=== PATIENT | female | born 1955 | race Caucasian/White ===

== ENCOUNTER 2018-12-28 11:59 | Observation (INO) ==
[2018-12-27 11:27] LABS: BASO# 0.04 X1000 (0.0-0.2); BASO% 0.4 % (0.0-0.8); EOS# 0.36 X1000 (0.0-0.7); EOS% 3.4 % (0.0-10.0); HEMATOCRIT 41.2 % (37.0-47.0); HEMOGLOBIN 13.4 g/dL (12.0-16.0); IMM GRAN# 0.08 X1000 (0.0-0.04); IMM GRAN% 0.8 % (0.0-0.5); LYMPH# 1.32 X1000 (1.2-3.4); LYMPH% 12.5 % (20.5-51.1); MCH 29.9 PG (27-31); MCHC 32.5 g/dL (33-37); MONO# 0.57 X1000 (0.11-0.59); MONO% 5.4 % (1.7-9.3); MPV 9.5 FL (7.4-10.4); NEUT# 8.22 X1000 (1.4-6.5); NEUT% 77.5 % (42.2-75.2); PLT 297 X1000 (130-400); RBC 4.48 XMIL (4.2-5.4); RDW 13.1 % (11.5-14.5); WBC 10.59 X1000 (4.8-10.8)
[2018-12-27 11:36] LABS: INR 1.86; PROTIME 21.8 Seconds (11.0-16.0)
[2018-12-27 11:59] LABS: AGAP 13; ALB/GLOB RATIO 1.1; ALBUMIN 3.4 g/dL (3.5-5.0); ALKALINE PHOSPHATASE 85 U/L (32-104); BUN 13 mg/dL (8-22); CALCIUM 8.8 mg/dL (8.8-10.2); CHLORIDE 101 mmol/L (98-107); COSMO 284; CREATININE 0.5 mg/dL (0.5-0.9); ESTIMATED GFR > 60; GLUCOSE 173 mg/dL (70-104); GOT 16 U/L (10-30); GPT 11 U/L (10-36); MAGNESIUM 1.7 mg/dL (1.5-2.7); SODIUM 140 mmol/L (136-145); TCO2 26 mmol/L (25-35); TOTAL BILIRUBIN 0.89 mg/dL (0.20-1.00); TOTAL PROTEIN 6.6 g/dL (6.3-8.3)
[2018-12-27] MEDS: NS 1,000 ML IV SCH ×2 (13:09→13:56)
--- NOTE | 2018-12-27 19:02 | Diag Imaging Result Doc PS360 ---
EXAM: US PELVIC NON-OB COMPLETE - 12/27/2018 HISTORY: Post menopausal bleeding TECHNIQUE: Ultrasound pelvis. Exam performed using transabdominal probe. According to the technologist, the patient refused imaging utilizing the endovaginal probe. COMPARISON: None. FINDINGS: There is limitation of detail due to the patient's body habitus and limited distention of the urinary bladder. The uterus measures 6 x 5.8 x 3.3 cm in size. The dual layer endometrial thickness measures 3 mm. There is no uterine lesion identified. Neither ovary is visualized. There is no adnexal region mass identified. There is no free fluid identified. IMPRESSION: Limited exam. No visible abnormality. However, neither ovary is visualized. Electronically signed by Andrew Morales 12/27/2018 6:59 PM
[2018-12-27] MEDS: TYLENOL PO PRN (21:09)
[2018-12-27] MEDS: HUMALOG SUBQ SCH (23:38)
--- NOTE | 2018-12-28 04:42 | HISTORY AND PHYSICAL ---
CHIEF COMPLAINT: [*]. HISTORY OF PRESENT ILLNESS: This is a morbidly obese 63-year-old female with a history of congestive heart failure, atrial fibrillation on chronic anticoagulation, history of DVT, pulmonary embolus, diabetes mellitus type 2, with chronic venous ulcer to bilateral legs, with reported Pseudomonas. She presents to the hospital as a direct admit from [facility] for reported urethral or vaginal bleeding. The patient has a chronic indwelling Caldera due to her being bedridden. She states that yesterday afternoon she had a large bowel movement, had to strain quite a bit, had noticed a few flecks of blood in her Caldera, this cleared shortly after. She states that about 11 p.m last night or so she "felt a gush between her legs. Her checked and she noted blood, and they stated that they found the Caldera in the bed with her with the balloon inflated. She then presented to [facility]. A Caldera catheter was placed, and she was transferred to [facility] for Urology. PAST MEDICAL HISTORY: Diabetes mellitus type 2, atrial fibrillation on chronic anticoagulation, congestive heart failure, history of pulmonary embolus and deep vein thrombosis, arthritis, sleep apnea, recent sepsis with a prolonged hospitalization due to Pseudomonas ulcers bilateral legs, it started in June of 2018. PAST SURGICAL HISTORY: Left hip surgery, gallbladder, hernia surgery, skin graft to left lower extremity. ALLERGIES: No known drug allergies. HOME MEDICATIONS: A list will be obtained by the nursing staff and once verified will be restarted as appropriate. REVIEW OF SYSTEMS: Is discussed with the patient with pertinent positives stated in the HPI. She denied any syncope or dizziness, any chest pain or palpitations, shortness of breath, cough, fever, chills, night sweats, any nausea, vomiting, diarrhea, constipation, black or bloody vomitus or stools, hematuria. PHYSICAL EXAMINATION: GENERAL: This is a 63-year-old female who is lying in the bed in mild distress. VITAL SIGNS: Blood pressure is 125/83, with a heart rate of 97, respirations are 18, temperature 97.4 degrees, with room air saturations 97% to 100%. EYES: Pupils are equal, round and reactive to light. EOMs are intact. Sclerae are anicteric. HEENT: Head is normocephalic, atraumatic. Mucous membranes are moist. NECK: Supple with trachea midline. CARDIOVASCULAR: Regular rate and rhythm. S1 and S2 appreciated. EXTREMITIES: She has right lower extremity edema. Calves are nontender with peripheral pulses palpable x4 extremities. PULMONARY: Breath sounds are clear with no increased work of breathing noted. GASTROINTESTINAL: Abdomen is large, soft, nontender, nondistended with bowel sounds in all 4 quadrants. SKIN: Warm and dry. She does have scarring to her left leg from prior ulcer. She has discoloration of both feet. To the plantar surface they are bluish. She has a dressing intact to her right lower extremity. She is noted to have excoriation to bilateral groin folds up to her pannus and under both breasts. ASSESSMENT AND PLAN: 1. Presumed vaginal bleeding. 2. Questionable urethral bleeding. 3. Diabetes mellitus type 2. 4. History of congestive heart failure. 5. History of atrial fibrillation on chronic anticoagulation. 6. History of deep venous thrombosis and pulmonary embolus. 7. Arthritis. 8. Sleep apnea. 9. Recent Pseudomonas to ulcer right lower extremity. PLAN: The patient has been admitted. We will place her on telemetry. We will hold her anticoagulation at present while we are evaluating her bleeding. We will identify her home medications and continue. We will check a BMP and CBC in the morning. Pattern blood glucose with sliding scale insulin. We will consult wound therapy for evaluation. did examine the patient and on checking her Caldera her Caldera catheter was placed vaginally. When balloon was deflated the catheter did fall out of the vaginal area, and she immediately voided a large amount onto the bed. Prior to this she had been having some suprapubic pain, this did relieve after voiding. It was attempted to place a Caldera, although due to her body habitus and her arthritis we are unable to do this even the assistance of 4 extra people. We would attempt to turn her over on her abdomen and placed a Caldera. During this time she was noted to have vaginal bleeding, passing large clots, and therefore we discontinued attempting to pass the Caldera. We will consult Dr. Goncalves for BRAND PROTECTION MANAGER. Of note, the patient has not had a hysterectomy, and her last Pap smear was greater than 20 years ago. Further treatments pending hospital course. Plan was discussed with Dr. Ricketts. Dictated by REYNA Nina for Chance Martino MD cc: REYNA Nina MD MTDD
[2018-12-28] MEDS: ULTRAM PO PRN ×2 (05:29→22:23)
[2018-12-28] MEDS: PRILOSEC PO SCH ×2 (05:30→07:10)
--- NOTE | 2018-12-28 05:48 | CONSULTATION ---
DATE OF CONSULTATION: 12/27/2018 HISTORY OF PRESENT ILLNESS: The patient is a 63-year-old white female G0 who presents after referral after transfer from [facility] to [facility]. The patient is a 63- year-old bedridden female who had a catheter incident or removal, and had some bleeding afterwards. The concern was the patient might need a urology consult, and then was therefore transferred here. Apparently, after her initial evaluation, it was found that the patient had vaginal bleeding. Therefore, a GENERATOR WORKER consultation. Patient reports that since menopause, she has not had any vaginal bleeding, and this has been since age 44. She is unsure of when her last Pap smear was, but her last mammogram was last year. PAST MEDICAL HISTORY: Significant for obesity, arthritis, atrial fibrillation, diabetes mellitus, obstructive sleep apnea, and incontinence. PAST SURGICAL HISTORY: Significant for left hip surgery x4, cholecystectomy, hernia repair after the cholecystectomy, and she has had surgery for venous ulcers. She had a stent placed in one of the vessels leading to her left leg. PAST OB HISTORY: G0. GENERATOR WORKER HISTORY: Menarche at age 13 and menopause at age 44. FAMILY HISTORY: Significant for high blood pressure as well as colon cancer. MEDICATIONS: Tramadol, gabapentin, metformin, Celexa, Zocor. Xarelto, metoprolol, and Tessalon Perles. ALLERGIES: No known drug allergies. PHYSICAL EXAMINATION: Vital Signs: Height 4 foot 11 inches, weight 319 pounds, temperature 98 degrees, blood pressure 141/79, pulse of 87, and respirations 18. HEENT: Pupils equal, round, and reactive to light and accommodation. Extraocular movements intact. Oropharynx clear. Neck: Supple. No thyromegaly. Lungs: Clear to auscultation. Heart: Regular rate and rhythm. Abdomen: Obese. Pelvic: Exam is difficult due to the patient's body habitus, but trying to visualize the vaginal mucosa due to patient's size was difficult even with help. We did not see any abnormal findings, but certainly not sure that there could not have been some incident involving catheterization or ulcers that have occurred because of her stationary status. On bimanual examination, unable to appreciate any fungating masses, and of course is difficult to assess the uterus due to the patient's body habitus. The lower extremities were very difficult to maneuver. Patient along with her arthritis and several hip surgeries, and large size, it is a difficult patient to manage from a GENERATOR WORKER standpoint. ASSESSMENT AND PLAN: Vaginal bleeding of unknown origin, possibly from her Xarelto or possibly from ulceration of skin from being bedridden and with catheter. I am unsure of the etiology. We will evaluate the uterus with an ultrasound to see if there is any endometrial thickening. At the present time, I would recommend to decrease the Xarelto and see if this was not a factor in her bleeding episode. Her hemoglobin is of a high enough status that she does not appear to be in any life-threatening situation. We will recheck a CBC and reassess once the ultrasound has been performed. cc: Abelino Goncalves III, MD
[2018-12-28 06:07] LABS: BASO# 0.04 X1000 (0.0-0.2); BASO% 0.4 % (0.0-0.8); EOS# 0.47 X1000 (0.0-0.7); EOS% 4.9 % (0.0-10.0); HEMATOCRIT 39.1 % (37.0-47.0); HEMOGLOBIN 12.7 g/dL (12.0-16.0); IMM GRAN# 0.09 X1000 (0.0-0.04); IMM GRAN% 0.9 % (0.0-0.5); LYMPH# 1.85 X1000 (1.2-3.4); LYMPH% 19.5 % (20.5-51.1); MCH 29.7 PG (27-31); MCHC 32.5 g/dL (33-37); MCV 91.4 FL (81-99); MONO# 0.52 X1000 (0.11-0.59); MONO% 5.5 % (1.7-9.3); MPV 9.4 FL (7.4-10.4); NEUT# 6.54 X1000 (1.4-6.5); NEUT% 68.8 % (42.2-75.2); PLT 308 X1000 (130-400); RBC 4.28 XMIL (4.2-5.4); RDW 13.1 % (11.5-14.5); WBC 9.51 X1000 (4.8-10.8)
[2018-12-28 06:38] LABS: AGAP 13; BUN 8 mg/dL (8-22); CALCIUM 9.1 mg/dL (8.8-10.2); CHLORIDE 101 mmol/L (98-107); COSMO 277; CREATININE 0.5 mg/dL (0.5-0.9); ESTIMATED GFR > 60; GLUCOSE 154 mg/dL (70-104); POTASSIUM 3.8 mmol/L (3.5-5.1); SODIUM 138 mmol/L (136-145); TCO2 24 mmol/L (25-35)
[2018-12-28] MEDS: HUMALOG SUBQ SCH ×4 (06:58→22:03)
[2018-12-28] MEDS: NS 1,000 ML IV SCH ×2 (06:58→11:57)
[~2018-12-28 11:59] MED LIST: CELEXA PO ONE; DILAUDID IV ONE; NS 500 ML IV ONE; ZOFRAN IV PRN
--- NOTE | 2018-12-28 18:12 | PROGRESS NOTE ---
DATE: 12/28/2018 SUBJECTIVE: The patient reports no more episodes of bleeding. This afternoon nurse tech notified that there was a big clot that this patient had. Patient is denying any dizziness or lightheadedness. OBJECTIVE: Vital Signs: Temperature 98 degrees, heart rate 80, respiratory rate 18, blood pressure 145/78, 100% on nasal cannula. General examination: This is a morbidly obese, 63-year- old female lying in bed in no acute distress. Cardiovascular Exam: S1, S2 heard. No murmurs, gallops, or rubs. Regular rate and rhythm. Respiratory Exam: Clear bilaterally to auscultation. No work of breathing or using accessory muscles. Abdomen: Soft, nontender to palpation. Bowel sounds present. No organomegaly. Extremities: No clubbing, cyanosis, or edema. Peripheral pulses present in both legs. Neurological exam: Patient is alert and oriented x3. Moves all 4 extremities. LABORATORY DATA: Hemoglobin yesterday 13.4, today 12.7. Normal BMP. ASSESSMENT AND PLAN: 1. Presumed vaginal bleeding. Patient has been evaluated by OB-HANDMADE TILE ARTIST. Both physical examination an pelvic ultrasound did not show any signs of bleeding. We are not sure if she had some ureteral bleeding as well. At this point, her hemoglobin is stable. I think at this time considering that we may need to rule out any hematuria and also for placement of Caldera catheter that this patient will be challenging for our nursing staff. I prefer to go ahead and consult urology. 2. Diabetes mellitus type 2. We will continue with sliding scale insulin and Accu-Chek before meals and also at bedtime. 3. Congestive heart failure. Patient is not in an exacerbation. We will continue to monitor. 4. History of atrial fibrillation on chronic anticoagulation. We of course have held [email or web address] at this point. 5. History of deep venous thrombosis and pulmonary embolism. Aware. Not receiving any blood thinners at this point. DISPOSITION: After evaluation by Urology, if everything is okay, I am planning to keep this patient 1 more day but check hemoglobin. If that is okay tomorrow, I think it would be reasonable to discharge her. cc: MD RYLIE Hilliard
--- NOTE | 2018-12-28 22:46 | CONSULTATION ---
DATE OF CONSULTATION: 12/28/2018 ATTENDING AND REFERRING PHYSICIAN: Hospitalist. HISTORY OF PRESENT ILLNESS: This 63-year-old female was admitted with probable vaginal bleeding and hematuria. The patient is morbidly obese and bed bound. The patient states she had a severe pelvic fracture at age 11 and had her left hip replaced at age 20. She has had several revisions with that and developed a large ulcer on the left lower extremity in June 2018. She states that she is also having significant arthritic changes of her knees and has been recommended to have bilateral knee replacement surgery. She states that since the surgery on her left lower extremity she has had a Caldera catheter in place because of significant incontinence. She states she cannot stand because of her knees. She states that the other night the Caldera catheter was somehow pulled out with the balloon intact and she has had bleeding off and on since then. She has been evaluated here by RESIDENTIAL REMODELING SUBCONTRACTOR. It is felt that she had a mucosal tear. She is anticoagulated secondary to chronic atrial fibrillation. The patient denies any problems with kidney stones. She has had no previous urologic surgery. She states the catheter is changed by home health monthly. She states she has an occasional urinary tract infection and has her whole life. PAST MEDICAL HISTORY: Diabetes, atrial fibrillation, history of DVTs, arthritis, sleep apnea. CURRENT MEDICATIONS: Documented on the chart. PAST SURGICAL HISTORY: Left hip replacement with several revisions since then, cholecystectomy, hernia surgery and decubitus ulcer care with skin grafting. SOCIAL HISTORY: No tobacco or alcohol use. ALLERGIES: No known drug allergies. REVIEW OF SYSTEMS: She denies any problems with recent chest pains, pulmonary or bowel problems. PHYSICAL EXAMINATION: General: A markedly obese, age apparent, normally developed, white female, oriented in all ways and cooperative. HEENT: Normal for age. Lungs: Clear. Cardiovascular: Regular rate and rhythm. No murmur is appreciated. Abdomen: Very obese, soft, nontender. No hepatosplenomegaly or masses. Normal bowel sounds. : Deferred until surgery. Extremities: Mild right lower extremity edema. Left side has a scar from her previous ulcer and treatment. Neurologic: No focal deficits. LABORATORY EVALUATION: Has a white count of 9.51, hemoglobin of 12.7, hematocrit 39.1, and platelets are 308,000. Serum electrolytes are normal. BUN 8, creatinine 0.5. IMPRESSION: 1. Chronic indwelling Caldera catheter for the last several months to allow care of her left lower extremity wound. 2. Probable Caldera catheter trauma to the bladder and possible urethra and vaginal area. 3. Bleeding will continue until the tears completely heal which will take longer with her being anticoagulated. 4. Morbid obesity. RECOMMEND: Cystoscopic exam with bilateral retrograde ureteral pyelograms to ensure the urinary system is normal. This was discussed with the patient. The planned procedure, benefits versus risks, possible complications, including continued bleeding, infection, not finding an abnormality, finding an abnormality with need for further treatment was discussed. She seems to understand and desires to proceed. This will be done Monday ( 31 December). Thank you for this consultation. cc: Jeet Villeda MD MTDD
[2018-12-29] MEDS: NS 1,000 ML IV SCH ×3 (00:03→13:01)
[2018-12-29] MEDS: HUMALOG SUBQ SCH ×4 (06:44→21:13)
[2018-12-29] MEDS: PRILOSEC PO SCH (06:48)
[2018-12-29 07:51] LABS: BASO# 0.05 X1000 (0.0-0.2); BASO% 0.5 % (0.0-0.8); EOS# 0.46 X1000 (0.0-0.7); EOS% 4.6 % (0.0-10.0); HEMATOCRIT 32.3 % (37.0-47.0); HEMOGLOBIN 10.3 g/dL (12.0-16.0); IMM GRAN# 0.06 X1000 (0.0-0.04); IMM GRAN% 0.6 % (0.0-0.5); LYMPH# 1.97 X1000 (1.2-3.4); LYMPH% 19.7 % (20.5-51.1); MCH 29.6 PG (27-31); MCHC 31.9 g/dL (33-37); MCV 92.8 FL (81-99); MONO# 0.74 X1000 (0.11-0.59); MONO% 7.4 % (1.7-9.3); MPV 10.1 FL (7.4-10.4); NEUT# 6.71 X1000 (1.4-6.5); NEUT% 67.2 % (42.2-75.2); PLT 271 X1000 (130-400); RBC 3.48 XMIL (4.2-5.4); WBC 9.99 X1000 (4.8-10.8)
[2018-12-29 07:57] LABS: AGAP 12; BUN 6 mg/dL (8-22); CALCIUM 8.5 mg/dL (8.8-10.2); CHLORIDE 102 mmol/L (98-107); COSMO 280; CREATININE 0.4 mg/dL (0.5-0.9); ESTIMATED GFR > 60; GLUCOSE 148 mg/dL (70-104); POTASSIUM 3.9 mmol/L (3.5-5.1); SODIUM 140 mmol/L (136-145); TCO2 26 mmol/L (25-35)
[2018-12-29] MEDS: CELEXA PO SCH (08:28)
[2018-12-29] MEDS: ULTRAM PO PRN ×2 (10:07→21:22)
[2018-12-29] MEDS: TYLENOL PO PRN (16:06)
[2018-12-29] MEDS ORDERED: LOPRESSOR PO ONE (18:35)
[2018-12-29] MEDS ORDERED: LOPRESSOR IV ONE (18:35)
--- NOTE | 2018-12-29 20:32 | PROGRESS NOTE ---
DATE: 12/29/2018 INTERVAL HISTORY: A pubic urine catheter was placed, and since then, patient has had clear urine. She has not had anymore bleeding episodes. The patient states she had a nervous breakdown for which she was restarted on her Celexa. She denies any chest pain, shortness of breath. She has been eating okay. We discussed about her atrial fibrillation. We discussed that she has had multiple blood clots in the . We discussed about possible cystoscopy on Monday. Current vitals, temperature 99.2 degrees, pulse 102, respiratory rate 20, blood pressure 140/68. She is saturating 98% on room air. PHYSICAL EXAMINATION: Morbidly obese, not in any acute distress. Oral cavity is moist. Air entry bilaterally equal. No wheeze, rhonchi, crackles. S1, S2 normal. Irregularly irregular. No murmur, rub, or gallop.Abdomen: Obese, soft, nontender. Bilateral dorsalis pedis pulses are equal and adequate. She has a pubic urine catheter draining clear yellow urine. LABORATORY: Labs suggestive of a drop in hemoglobin to 10.3, platelet of 271,000. She has normal kidney function, normal electrolytes. Microbiology, no data. IMAGING: Pelvic ultrasound performed was limited in exam. There was no visible abnormality. However, neither ovary was visualized. ASSESSMENT AND PLAN: 1. Presumed vaginal bleeding versus hematuria after accidental dislodgement of Caldera catheter. Continue pubic catheter, which is currently draining clear urine. Pelvic ultrasound was noncontributory. Her bleeding has stopped. I will continue to monitor. 2. Acute blood loss anemia. She has had close to 10% drop in her hematocrit. I will continue to monitor CBC. No need of acute transfusion. The patient is likely to undergo cystoscopy on Monday. However, her bleeding has stopped. Urology on board, appreciate recommendations. 3. History of paroxysmal atrial fibrillation, congestive heart failure. Currently, she is in atrial fibrillation with a rapid ventricular rate. I will start the patient on her home metoprolol, continue to hold anticoagulation. In the future, I would consider resuming her on Xarelto or aspirin if she does not develop anymore bleeding episodes. 4. History of multiple deep vein thrombosis and pulmonary embolus in the . Continue to hold blood thinners considering recent episode of acute bleeding and hematuria. 5. Others. Continue home citalopram for anxiety, gabapentin for chronic pain, simvastatin for hyperlipidemia, oxybutynin and tolterodine for bladder spasm. DISPOSITION: I will continue to monitor patient inside the hospital. Plan of care discussed with her. Her questions have been answered. cc: Terry Reynaga MD
[2018-12-29] MEDS: MAGNESIUM GLUCONATE PO SCH (21:17)
[2018-12-29] MEDS: NEURONTIN PO SCH ×2 (21:17→21:18)
[2018-12-29] MEDS: SINEMET 25/100 PO SCH (21:18)
[2018-12-29] MEDS: ZOCOR PO SCH (21:18)
[2018-12-29] MEDS: FISH OIL CONCENTRATE PO SCH (21:18)
[2018-12-29] MEDS: SINGULAIR PO SCH (21:18)
[2018-12-30 06:49] LABS: HEMATOCRIT 33.1 % (37.0-47.0); HEMOGLOBIN 10.2 g/dL (12.0-16.0); MCHC 30.8 g/dL (33-37); RBC 3.52 XMIL (4.2-5.4); RDW 13.2 % (11.5-14.5); WBC 9.68 X1000 (4.8-10.8)
[2018-12-30 06:50] LABS: BASO# 0.05 X1000 (0.0-0.2); BASO% 0.5 % (0.0-0.8); EOS# 0.61 X1000 (0.0-0.7); EOS% 6.3 % (0.0-10.0); IMM GRAN# 0.08 X1000 (0.0-0.04); IMM GRAN% 0.8 % (0.0-0.5); LYMPH# 2.25 X1000 (1.2-3.4); LYMPH% 23.2 % (20.5-51.1); MONO# 0.92 X1000 (0.11-0.59); MONO% 9.5 % (1.7-9.3); MPV 9.5 FL (7.4-10.4); NEUT# 5.77 X1000 (1.4-6.5); NEUT% 59.7 % (42.2-75.2); PLT 297 X1000 (130-400)
[2018-12-30] MEDS: HUMALOG SUBQ SCH ×4 (06:51→21:27)
[2018-12-30] MEDS: PRILOSEC PO SCH (06:54)
[2018-12-30 07:35] LABS: AGAP 10; BUN 6 mg/dL (8-22); CHLORIDE 104 mmol/L (98-107); COSMO 283; CREATININE 0.5 mg/dL (0.5-0.9); ESTIMATED GFR > 60; GLUCOSE 136 mg/dL (70-104); POTASSIUM 3.6 mmol/L (3.5-5.1); SODIUM 142 mmol/L (136-145); TCO2 28 mmol/L (25-35)
[2018-12-30] MEDS: DITROPAN XL PO SCH (08:25)
[2018-12-30] MEDS: DETROL PO SCH (08:25)
[2018-12-30] MEDS: CELEXA PO SCH (08:25)
[2018-12-30] MEDS: FISH OIL CONCENTRATE PO SCH ×2 (08:25→21:27)
[2018-12-30] MEDS: LOPRESSOR PO SCH (08:26)
[2018-12-30] MEDS: NEURONTIN PO SCH ×3 (08:26→21:41)
[2018-12-30] MEDS ORDERED: DIFLUCAN PO ONE (14:31)
[2018-12-30] MEDS: LIDODERM TOP SCH (16:04)
--- NOTE | 2018-12-30 17:41 | PROGRESS NOTE ---
DATE: 12/30/2018 INTERVAL HISTORY: No acute events overnight. The patient does not have any more hematuria in the PureWick urine catheter. SUBJECTIVE: She states that when she was trying to turn inside the bed, she suddenly started developing pain in her back, and she thinks it might be urinary infection. We discussed about high risk of stroke, advantages and disadvantages of anticoagulation in the setting. We are awaiting cystoscopy tomorrow. The patient denies any chest pain or shortness of breath. She complains of itchiness in the vaginal area. VITALS: Temperature 98.1 degrees, pulse 75, respiratory rate 17, blood pressure 97/60, saturating 98% on 2 L nasal cannula. PHYSICAL EXAMINATION: Morbidly obese. Not in any acute distress. Oral cavity: Moist. Lungs: Air entry bilaterally equal. No wheeze, rhonchi, crackles. Heart: S1, S2 normal. Irregularly irregular. No murmur or gallop. Abdomen: Obese, soft, nontender. Extremities: Bilateral dorsalis pedis pulses are equal and adequate. Genitourinary: She has a PureWick urine catheter draining clear yellow urine. Back: She has localized tenderness in the left side of paravertebral area in lumbar region. Input and output suggest she had 3 L of urine yesterday. LABS: Suggestive of normocytic anemia. Normal platelet count. She does have essentially unremarkable electrolytes. ASSESSMENT AND PLAN: 1. Presumed hematuria due to dislodged Caldera catheter versus vaginal bleeding. Continue PureWick catheter draining clear urine. Pelvic ultrasound was noncontributory considering her large body habitus. Her bleeding has stopped. Continue to hold Xarelto. No need of transfusion. Her acute blood loss anemia is acceptable. 2. History of paroxysmal atrial fibrillation and congestive heart failure. Her CHADS2-VASc score is 4. She is at high risk of developing stroke. I discussed with her about risk versus benefit of continuing anticoagulation in current setting, and we decided to hold anticoagulation for now. I will continue her simvastatin. 3. Atrial fibrillation with rapid ventricular rate. Now well controlled. Continue home metoprolol. Hold anticoagulation. In future I would consider starting her on aspirin versus Xarelto as per the cystoscopy results. 4. She does have history of multiple deep venous thromboses and pulmonary embolisms in . 5. Continue home citalopram for anxiety; gabapentin for chronic pain; oxybutynin and tolterodine for bladder spasm; omeprazole for gastroesophageal reflux disease. I will also give her 1 time fluconazole for vaginal candidiasis and topical lidocaine patch for musculoskeletal back pain. 6. Disposition. Continue to monitor patient inside the hospital. Plan of care discussed with her. All questions have been answered. cc: Terry Reynaga MD
[2018-12-30] MEDS: MAGNESIUM GLUCONATE PO SCH (21:26)
[2018-12-30] MEDS: SINEMET 25/100 PO SCH (21:26)
[2018-12-30] MEDS: ZOCOR PO SCH (21:26)
[2018-12-30] MEDS: ULTRAM PO PRN (21:27)
[2018-12-30] MEDS: SINGULAIR PO SCH (21:27)
[2018-12-31] MEDS: PRILOSEC PO SCH (06:35)
[2018-12-31] MEDS: HUMALOG SUBQ SCH ×5 (06:36→21:43)
[2018-12-31] MEDS ORDERED: ZOFRAN ONE (08:12)
[2018-12-31] MEDS ORDERED: DECADRON ONE (08:12)
[2018-12-31] MEDS ORDERED: FENTANYL ONE (08:12)
[2018-12-31] MEDS ORDERED: XYLOCAINE-MPF 2% ONE (08:13)
[2018-12-31] MEDS ORDERED: DIPRIVAN 1% ONE (08:13)
[2018-12-31] MEDS ORDERED: ROBINUL ONE (08:13)
[2018-12-31] MEDS: LOPRESSOR PO SCH (08:33)
[2018-12-31] MEDS ORDERED: NEOSPORIN G.U. IRRIGANT ONE (08:38)
[2018-12-31] MEDS ORDERED: KEFZOL 2 GM/D5W 2 GM/50 ML IVPB ONE (08:49)
[2018-12-31] MEDS ORDERED: GENTAMICIN ONE (08:50)
[2018-12-31] MEDS ORDERED: MORPHINE ONE (09:40)
--- NOTE | 2018-12-31 09:56 | Diag Imaging Result Doc PS360 ---
RETROGRADES 2 OR 3 FILMS - 12/31/2018 INDICATION: HEMATURIA, MISBAH. RETROGRADES TECHNIQUE: The exam was performed by the patient's urologist. 18 images were submitted. COMPARISON: None FINDINGS: The ureters and renal collecting systems are normal bilaterally. IMPRESSION: Negative exam. Electronically signed by Olu García 12/31/2018 9:54 AM
[2018-12-31] MEDS: CELEXA PO SCH (11:30)
[2018-12-31] MEDS: LIDODERM TOP SCH ×2 (11:30→13:20)
[2018-12-31] MEDS: DETROL PO SCH (11:30)
[2018-12-31] MEDS: DITROPAN XL PO SCH (11:31)
[2018-12-31] MEDS: NEURONTIN PO SCH ×3 (11:31→21:32)
[2018-12-31] MEDS: FISH OIL CONCENTRATE PO SCH ×2 (11:31→21:33)
--- NOTE | 2018-12-31 15:11 | OPERATIVE NOTE ---
PROCEDURE DATE: 12/31/2018 SURGEON: Jeet Villeda MD. PREOPERATIVE DIAGNOSIS: Caldera catheter trauma with vaginal bleeding and hematuria. POSTOPERATIVE DIAGNOSIS: Caldera catheter trauma with vaginal bleeding and hematuria. PROCEDURE PERFORMED: Cystoscopic exam, bilateral retrograde ureteral pyelogram, cold cup bladder biopsies. ANESTHESIA: General via laryngeal mask. FINDINGS: Cystoscopic exam: Urethra-greater than 21-Telugu without stricture. Bladder-normal ureteral orifices bilaterally. Some mild thickening of the trigone mucosa, consistent with previous indwelling Caldera catheter. Some red areas of the bladder, most prominent on the left mid posterolateral wall and right lower posterolateral wall. Left retrograde ureteropyelogram normal without filling defect. Right retrograde ureteropyelogram normal without filling defect. exam: Normal external female. There appears to be a healing mucosal tear at the 6 o'clock position at the meatal-vaginal junction. No adnexal masses. Palpably normal bladder. The patient has a very large pannus. INDICATION FOR PROCEDURE: This 63-year-old, very obese, white female has an indwelling Caldera catheter to allow leg ulcers to heal. The Caldera catheter was traumatically removed with the balloon intact and she developed bleeding. She was seen by PROTOTYPE SPECIAL BUILD who felt that it may be a vaginal mucosal tear but could not say for sure. DESCRIPTION OF PROCEDURE: After informed consent was obtained from the patient and her receiving IV antibiotics, she was taken to the main OR cystoscopy room and placed in the supine position. General anesthesia via laryngeal mask was achieved. She was then placed in the low lithotomy position, and prepped and draped in the usual sterile fashion for a cystoscopic exam. A 21-Telugu sheath cystoscope was passed through the patient's urethra and into the bladder with findings as noted above. An 8-Telugu, cone-tipped catheter was passed through the cystoscope and engaged the left ureteral orifice. Contrast was injected. Right side was accomplished similarly. Again, no filling defects were seen on either side. The cold cup biopsy forceps were then placed and a single cold cup biopsy of the red area on the left mid posterolateral wall and right lower posterolateral wall were taken, and sent to pathology in separate containers. The Bugbee electrode was placed. Hemostasis was achieved. At the completion of the procedure, both ureteral orifices were intact. No bleeding areas were seen. The bladder was left distended. The cystoscope was removed. A 16-Telugu Caldera catheter was passed through the patient's urethra and into her bladder without difficulty. A exam was performed. She tolerated the procedure well. Estimated blood loss was 0. She was taken to the recovery room in good condition. cc: Jeet Villeda MD
[2018-12-31] MEDS ORDERED: NS 1,000 ML IV ONE (17:20)
--- NOTE | 2018-12-31 19:51 | PROGRESS NOTE ---
DATE: 12/31/2018 INTERVAL HISTORY: Patient underwent urological procedure with cystoscopy, bilateral retrograde pyelogram. The official report states she did not have any significant abnormality in urinary bladder or ureter, though she was found to have a small tear at urethrovaginal junction which was healing without any active bleeding, which she tolerated the procedure well. SUBJECTIVE: She is sleepy but denies any complaints. She states her itching in the vaginal area is significantly better after a dose of fluconazole yesterday. We discussed about resuming anticoagulation after discussion with Urology. I answered all of her questions VITAL SIGNS: Currently temperature 98.4, pulse 91, respiratory rate 18, blood pressure 84/44 for which I am ordering normal saline bolus. PHYSICAL EXAMINATION: General: Morbidly obese, not in acute distress. Oral cavity is moist. Lungs: Air entry bilaterally equal. No wheeze, rhonchi, or crackles. Cardiovascular: S1, S2 normal. Irregularly irregular. No murmur or gallop. Abdomen: Obese, soft, nontender bilateral dorsalis pedis pulses are equal and adequate. She has pubic catheter which is draining clear urine. She denies any back pain today, morning. Input and output: Nothing significant. LABORATORY DATA: No CBC or BMP. ASSESSMENT AND PLAN: 1. Presumed vaginal/urinary bleeding, likely due to dislodged Caldera catheter after related trauma. Urethra and urinary bladder mucosa was intact. Likely this was related to tear near the urethral meatus and vaginal junction. After discussion with Urology, I would resume her anticoagulation. No acute blood loss and no need for transfusion. Her acute blood loss anemia is stable. 2. History of paroxysmal atrial fibrillation and congestive heart failure. I will continue her simvastatin and beta blockers. 3. Atrial fibrillation with rapid ventricular rate now well controlled on metoprolol. I will resume Xarelto after discussion with Urology. Meanwhile, we will start her on aspirin. 4. She does have history of multiple deep vein thromboses and pulmonary embolism in the . 5. Others: Continue citalopram for anxiety; gabapentin for chronic pain; oxybutynin and tolterodine for bladder spasm; omeprazole for GERD. Her current hypotension is related to likely postoperative state. There was no documented bleeding. She is alert and oriented to verbal stimuli, though lapses back into sleep. I will order 1 time 1 L bolus. Plan of care discussed with the patient and her questions have been answered. cc: Terry Reynaga MD MTDD
[2018-12-31] MEDS: ZOCOR PO SCH (21:32)
[2018-12-31] MEDS: PERIDEX MT SCH (21:32)
[2018-12-31] MEDS: ULTRAM PO PRN (21:33)
[2018-12-31] MEDS: SINGULAIR PO SCH (21:33)
[2018-12-31] MEDS: MAGNESIUM GLUCONATE PO SCH (21:33)
[2018-12-31] MEDS: SINEMET 25/100 PO SCH (21:33)
[2019-01-01] MEDS: HUMALOG SUBQ SCH ×4 (07:03→22:30)
[2019-01-01] MEDS: PRILOSEC PO SCH (07:25)
[2019-01-01 07:32] LABS: BASO# 0.02 X1000 (0.0-0.2); BASO% 0.2 % (0.0-0.8); EOS# 0.01 X1000 (0.0-0.7); EOS% 0.1 % (0.0-10.0); HEMATOCRIT 31.1 % (37.0-47.0); IMM GRAN# 0.08 X1000 (0.0-0.04); IMM GRAN% 0.7 % (0.0-0.5); LYMPH# 1.53 X1000 (1.2-3.4); LYMPH% 12.5 % (20.5-51.1); MCH 30.3 PG (27-31); MCHC 32.2 g/dL (33-37); MCV 94.2 FL (81-99); MONO% 6.6 % (1.7-9.3); MPV 9.7 FL (7.4-10.4); NEUT# 9.77 X1000 (1.4-6.5); NEUT% 79.9 % (42.2-75.2); PLT 305 X1000 (130-400); RDW 12.9 % (11.5-14.5); WBC 12.21 X1000 (4.8-10.8)
[2019-01-01 07:39] LABS: AGAP 9; BUN 12 mg/dL (8-22); CALCIUM 9.2 mg/dL (8.8-10.2); CHLORIDE 104 mmol/L (98-107); COSMO 284; CREATININE 0.6 mg/dL (0.5-0.9); ESTIMATED GFR > 60; GLUCOSE 125 mg/dL (70-104); POTASSIUM 4.4 mmol/L (3.5-5.1); SODIUM 142 mmol/L (136-145); TCO2 29 mmol/L (25-35)
[2019-01-01] MEDS ORDERED: ASPIRIN PO SCH (09:00)
[2019-01-01] MEDS: XARELTO PO SCH (10:06)
[2019-01-01] MEDS: DETROL PO SCH (10:06)
[2019-01-01] MEDS: DITROPAN XL PO SCH (10:06)
[2019-01-01] MEDS: LOPRESSOR PO SCH (10:06)
[2019-01-01] MEDS: NEURONTIN PO SCH ×3 (10:06→22:26)
[2019-01-01] MEDS: FISH OIL CONCENTRATE PO SCH ×2 (10:07→22:29)
[2019-01-01] MEDS: CELEXA PO SCH (10:07)
[2019-01-01] MEDS: PERIDEX MT SCH ×2 (10:07→22:29)
[2019-01-01] MEDS: ULTRAM PO PRN ×2 (10:09→22:28)
[2019-01-01] MEDS: LIDODERM TOP SCH (12:53)
--- NOTE | 2019-01-01 17:58 | PROGRESS NOTE ---
DATE: 01/01/2019 INTERVAL HISTORY: No acute events overnight. She was restarted on her blood thinners and so far she has not experienced any bleeding. We discussed about exam findings. I answered all of her questions. VITAL SIGNS: Temperature 98.3 degrees, pulse 80, respiratory rate 19, blood pressure 98/54, saturating 97% room air. PHYSICAL EXAMINATION: General: Obese, not in acute distress. HEENT: Oral cavity is moist. Respiratory: Air entry bilaterally equal. No wheezing, rhonchi or crackles. Cardiovascular: S1, S2 normal. No murmur, rub, or gallop. Irregularly irregular. Abdomen: Obese, soft, nontender. Extremities: Bilateral dorsalis pedis pulses are equal and adequate. Neurologic: She is alert and oriented x3. Her hypotension yesterday improved after 1 L of bolus. LABORATORY: CBC today, hemoglobin of 10, platelets of 305,000. Normal electrolytes. ASSESSMENT AND PLAN: 1. Presumed vaginal bleeding, likely because of Caldera catheter related trauma [facility] injuring urethral meatus and vaginal junction, status post cystoscopy which did not detect any active bleeding. Her acute blood loss anemia has been stable and does not require any blood transfusion. She was also on Xarelto which I would resume now. 2. History of paroxysmal atrial fibrillation, congestive heart failure. Continue simvastatin, beta kaitlin, and resume Xarelto. Follow up hemoglobin and bleeding status. I will also continue her metoprolol. Her rate is currently well controlled. 3. She has history of multiple deep vein thromboses and pulmonary embolisms. Will keep her on Xarelto. 4. Others. Continue citalopram for anxiety; gabapentin for chronic pain; oxybutynin and tolterodine for bladder spasm; omeprazole for GERD. Her hypotension yesterday responded to intravenous fluids. This was likely in the setting of anesthetic use. DISPOSITION: If the patient does not develop bleeding, my plan is to discharge her back to her skilled facility tomorrow. Plan of care discussed with her. All questions have been answered. cc: Terry Reynaga MD
[2019-01-01] MEDS: ZOCOR PO SCH (22:25)
[2019-01-01] MEDS: SINEMET 25/100 PO SCH (22:26)
[2019-01-01] MEDS: MAGNESIUM GLUCONATE PO SCH (22:27)
[2019-01-01] MEDS: SINGULAIR PO SCH (22:29)
[2019-01-02] MEDS: PRILOSEC PO SCH (06:23)
[2019-01-02] MEDS: HUMALOG SUBQ SCH (06:34)
[2019-01-02 06:57] VITALS: BP 120/81
[2019-01-02] MEDS: LOPRESSOR PO SCH (08:35)
[2019-01-02] MEDS: DITROPAN XL PO SCH (08:35)
[2019-01-02] MEDS: XARELTO PO SCH (08:35)
[2019-01-02] MEDS: LIDODERM TOP SCH (08:35)
[2019-01-02] MEDS: NEURONTIN PO SCH (08:35)
[2019-01-02] MEDS: CELEXA PO SCH (08:35)
[2019-01-02] MEDS: FISH OIL CONCENTRATE PO SCH (08:36)
[2019-01-02] MEDS: PERIDEX MT SCH (08:36)
[2019-01-02] MEDS: ULTRAM PO PRN (08:39)
[2019-01-02] MEDS: DETROL PO SCH (08:44)
--- NOTE | 2019-01-02 10:33 | DISCHARGE SUMMARY ---
ADMISSION DATE: 12/27/2018 DISCHARGE DATE: 01/02/2019 DISCHARGE DISPOSITION: Home with family. DISCHARGE CONDITION: Hemodynamically stable. She is back on Xarelto. No longer having vaginal bleeding. DISCHARGE DIAGNOSES: 1. Presumed vaginal bleeding due to trauma related to dislodgement of Caldera catheter. 2. On chronic Xarelto for paroxysmal atrial fibrillation as well as deep venous thrombosis/pulmonary embolus. OTHER DIAGNOSES: 1. History of morbid obesity. 2. History of bed-bound status. 3. History of diabetes mellitus type 2. 4. History of chronic atrial fibrillation. 5. History of congestive heart failure. 6. History of multiple deep vein thrombosis and pulmonary embolus in . 7. History of sleep apnea. 8. History of chronic venous ulcers in bilateral legs with Pseudomonas infection in it. CONSULTATION DURING HOSPITAL ADMISSION: 1. [employer] Dr. Goncalves. [address]. Urologist [address] Villeda. DISCHARGE MEDICATIONS: Carbidopa levodopa 1 tab at nighttime, citalopram 40 mg daily, tolterodine 1 mg daily, oxybutynin 15 mg daily, fish oil 1 capsule b.i.d., metformin 500 mg at nighttime a total like 500 mg b.i.d., metoprolol 50 mg daily, magnesium 250 mg at nighttime, gabapentin 80 mg at nighttime, montelukast 10 mg at nighttime, benzonatate 100 mg as needed for cough, tramadol 50 mg t.i.d., Xarelto 20 mg at nighttime, levalbuterol 1 inhalation as needed for shortness of breath through nebulization, simvastatin 20 mg at nighttime. VITALS: At the time of discharge: Temperature 98.2 degrees, pulse 82, respiratory rate 16, blood pressure 120/80 saturating 100% on 2 L nasal cannula. PHYSICAL EXAMINATION: Morbidly obese not in acute distress. HEENT: Oral cavity is moist. Lungs: Air entry bilaterally equal. No wheeze, rhonchi, crackles. Cardiovascular: S1, S2 normal. No murmur, rub, or gallop. Abdomen: Soft, nontender. Extremities: No lower extremity edema. Intact dorsalis pedis pulses. Pelvic: She does not have any more vaginal bleeding. PROCEDURES DURING HOSPITAL ADMISSION: The patient underwent cystoscopic exam, bilateral retrograde ureteral pyelogram and cold cup bladder biopsy where she was detected to have urethra greater than 21-[place] without stricture, with some mild thickening in the trigone of mucosa consistent with previous indwelling Caldera catheter. Retrograde ureteral pyelogram was normal bilaterally. There was healing mucosal tear at 6 o'clock position at the meatal vaginal junction without any adnexal masses and otherwise normal urinary bladder. IMAGING DURING HOSPITAL ADMISSION: Pelvic ultrasound on December 27 had was limited exam. There was no visible abnormality. Ovaries were not visualized considering patient's large body habitus. Retrograde pyelogram had ureter and renal collecting system were normal bilaterally. The bladder biopsy specimens are pending. HOSPITAL COURSE SUMMARY: Ms. Butt is a 63-year-old lady with morbid obesity and history of peripheral artery disease and multiple ulcers requiring prolonged hospital stay in June 2018. Since then, she has been bed-bound. She came as a direct admit from [facility] for reported urethral or vaginal bleeding. The patient has a chronic indwelling Caldera catheter due to her bed ridden status and on 1 day prior to presentation, she had noticed a gush between her legs. Her checked and it was noted to have blood and the Caldera catheter in fact had come out in the bed with her balloon inflated in it. She could not remember how it got dislodged, but it was related to her body position, so she decided to go to the [facility] and from [facility], she was transferred to [facility] for urology and gynecology evaluation. On arrival, patient was hemodynamically stable. However she had profuse vaginal bleeding, so urology and gynecology was consulted. Her Xarelto was held. She was started on intravenous fluids. Pelvic ultrasound and pelvic examination was limited due to patient's bilateral hip arthritis and large body habitus. However, with conservative management, her bleeding had stopped. Urology eventually performed a cystoscopic examination which was essentially unremarkable except for healing mucosal tear at the urethral meatus, vaginal junction. There were a few areas of hypertrophy in urinary bladder, which were biopsied, the results of which are pending. After the urological procedure she was restarted back on her Xarelto, which she has been tolerating without any trouble and her Caldera catheter was replaced and she has not been bleeding. It was decided to discharge her and have outpatient urology and gynecology follow-up. At the time of discharge all of her questions were answered. TIME SPENT: More than 30 minutes spent in discharging this patient. cc: Terry Reynaga MD
== END 2019-01-02 09:41 | disposition home or self-care (01) ==
LOC: DIRADM 11:59
PROVIDERS: ADMIT Internal Medicine; ATTEND Internal Medicine